=== PATIENT | female | born 1985 | race Caucasian/White ===

== ENCOUNTER → 2016-05-13 | Outpatient (CLI) | payer BC ==
[~2016-05-13] MED LIST: ESTR10IN2 IM; HYDR1INJ12; PRENTAB26 PO; PRGI INJ
== END | disposition home or self-care (01) ==
LOC: C.PAPS 13:49
PROVIDERS: ATTEND Obstetrics & Gynecology
DX: O09.811 Supervision of pregnancy resulting from assisted reproductive technology, first trimester (principal)

== ENCOUNTER → 2016-05-17 | Outpatient (CLI) | payer BC ==
[2016-05-17 09:32] LABS: BASO % 0.3 %; BASO ABS # 0.02 K/uL (0-0.2); COMPLETE YES; EOS % 1.6 %; HEMATOCRIT 38.9 % (37-47); IG% 0.3 %; LYMPH % 22.6 %; LYMPH ABS # 1.79 K/uL (1.2-3.4); MEAN CELL VOLUME 89.2 fL (80-100); MEAN CORPUSCULAR HEMOGLOBIN 31.4 pg (25-34); MEAN CORPUSCULAR HGB CONC 35.2 g/dl (32-36); MEAN PLATELET VOLUME 10.3 fL (7.4-10.4); MONO % 5.5 %; NEUT % 69.7 %; PLATELET COUNT 241 K/uL (130-400); RED BLOOD COUNT 4.36 M/uL (4.2-5.4); WHITE BLOOD COUNT 7.93 K/uL (4.8-10.8)
== END | disposition home or self-care (01) ==
LOC: C.LAB1850 07:59
PROVIDERS: ATTEND Obstetrics & Gynecology
DX: O09.819 Supervision of pregnancy resulting from assisted reproductive technology, unspecified trimester (principal); O24.419 Gestational diabetes mellitus in pregnancy, unspecified control; Z3A.00 Weeks of gestation of pregnancy not specified

== ENCOUNTER 2016-06-08 11:09 | Emergency (ER) | payer BC, OTHER ==
[~2016-06-08] VITALS: Ht 167.6 cm; Wt 58.4 kg
[~2016-06-08 11:09] MED LIST changes: -HYDR1INJ12; -PRENTAB26 PO
[2016-06-08 11:10] VITALS: Ht 167.6 cm; Wt 58.4 kg
[2016-06-08] MEDS ORDERED: PRENTAB26 PO (11:28)
--- NOTE | 2016-06-08 11:46 | EMERGENCY ROOM VISIT NOTE ---
History First contact with patient: 11:29 Chief Complaint: NEEDLE STICK Stated Complaint: NEEDLESTICK History of Present Illness The patient is a 30 year old female who presents to the Emergency Room with complaints of "needle stick". Patient states that just before coming to the emergency department she was in the operating room here in the hospital and was accidentally stuck in the left second finger with a needle. The source patient is known. The patient immediately cleansed the area with Betadine. Minimal pain. She does not wish to have prophylaxis at this time. She notes she is 15 weeks . Review of Systems A complete 6-point Review of Systems was discussed with the patient, with pertinent positives and negatives listed in the History of Present Illness. All remaining Review of Systems questions can be considered negative unless otherwise specified. Past Medical/Surgical History Medical Problems: (1) In vitro fertilization Family History FHx: gallbladder disease FHx: heart disease Hypertension Kidney disease Social History Smoking Status: Never Smoker Marital Status: Housing Status: lives with family Occupation Status: employed Current/Historical Medications Scheduled Multivit/Min/Iron/Fol Ac/Pren ( Vitamin), 1 TAB PO DAILY Allergies Coded Allergies: Scallop (Verified Allergy, Intermediate, SEVERE VOMITING, 08/30/14) Physical Exam Vital Signs Date Time Temp Pulse Resp B/P Pulse Ox O2 Delivery O2 Flow Rate FiO2 06/08/16 12:27 36.8 73 18 114/72 99 06/08/16 11:10 36.8 73 18 114/72 99 Room Air Physical Exam VITAL SIGNS - Vital signs and nursing notes were reviewed. GENERAL - 30-year-old female appearing her stated age who is in no acute distress. Communicates well with provider and answers questions appropriately. SKIN - Without rashes. There is evidence of a small puncture to the left second index finger without bleeding. Good capillary refill. Full range of motion of the digit. Medical Decision & Procedures Medical Decision Patient was seen and evaluated as above. After obtaining a thorough history and physical examination it was evident the patient had received a body fluid exposure via needle stick in the operating room which I believe is significant. She was offered infectious prophylaxis but declined. The necessary paperwork regarding consent for testing was completed. [facility] labs were drawn after verifying consent. I did notify Jyoti Huntley and discussed the patient case with her. She will be contacting the necessary individuals to obtain source patient testing. She will then contact the patient here regarding lab results and follow-up. I do believe this is reasonable. Patient was educated upon worrisome symptoms in which to return, declined further cleansing of the wound and was discharged in good condition. Impression Primary Impression: Needlestick injury accident with exposure to body fluid Departure Information Dispostion Home / Self-Care Condition GOOD Referrals No Doctor, Assigned (PCP) Patient Instructions My [facility] Additional Instructions You were seen in the emergency Department for a needlestick of your finger. Through sure decision-making we have decided not to initiate prophylaxis at this time. You have consented to baseline testing. We have contacted Jyoti Huntley, an employee health farm loan representative who will be contacting you. You may also contact her directly at [phone]. She will be contacting individuals to have the source patient tested. If you have any questions please return or call back to the emergency department. Please watch for signs of infection on your finger to include redness, swelling , drainage, discharge if these develop please return to the emergency Department immediately. Please return to the emergency department with any new/concerning symptoms.
[2016-06-08 12:27] VITALS: BP 114/72; PULSE 73; TEMP 36.8; O2SAT 99
== END 2016-06-08 12:10 | disposition home or self-care (01) ==
LOC: C.EDB 11:10 → C.EDD 12:10
DX: S61.231A Puncture wound without foreign body of left index finger without damage to nail, initial encounter (principal); O9A.212 Injury, poisoning and certain other consequences of external causes complicating pregnancy, second trimester; W46.1XXA Contact with contaminated hypodermic needle, initial encounter; Y92.234 Operating room of hospital as the place of occurrence of the external cause; Y99.0 Civilian activity done for income or pay; Z3A.15 15 weeks gestation of pregnancy

== ENCOUNTER → 2016-08-02 | Outpatient (CLI) | payer BC ==
[~2016-08-02] MED LIST changes: -ESTR10IN2 IM; +HYDR1INJ12; +PRENTAB26 PO; -PRGI INJ
== END | disposition home or self-care (01) ==
LOC: C.CPL 13:13
PROVIDERS: ATTEND Obstetrics & Gynecology
DX: O09.812 Supervision of pregnancy resulting from assisted reproductive technology, second trimester (principal); Z3A.00 Weeks of gestation of pregnancy not specified

== ENCOUNTER → 2016-09-08 | Outpatient (CLI) | payer BC ==
[2016-09-08 13:09] LABS: URINE APPEARANCE CLEAR (CLEAR); URINE BILIRUBIN NEG (NEG); URINE COLOR YELLOW; URINE NITRITE NEG (NEG); URINE PH 7.5 (4.5-7.5); URINE SPECIFIC GRAVITY 1.008 (1.000-1.030); UROBILINOGEN NEG (NEG)
[2016-09-08 13:18] LABS: MANUAL MICROSCOPIC REQUIRED? NO; REVIEW REQ? NO
== END | disposition home or self-care (01) ==
LOC: C.LABSPEC 12:16
PROVIDERS: ATTEND Obstetrics & Gynecology
DX: O09.813 Supervision of pregnancy resulting from assisted reproductive technology, third trimester (principal)

== ENCOUNTER → 2016-09-20 | Outpatient (CLI) | payer BC ==
[2016-09-20 09:42] LABS: HEMATOCRIT 32.6 % (37-47)
== END | disposition home or self-care (01) ==
LOC: C.LAB1850 08:01
PROVIDERS: ATTEND Internal Medicine
DX: O09.813 Supervision of pregnancy resulting from assisted reproductive technology, third trimester (principal)

== ENCOUNTER 2016-10-17 12:26 | Outpatient (CLI) | payer BC ==
[~2016-10-17 12:26] MED LIST changes: -HYDR1INJ12
--- NOTE | 2016-10-17 12:52 | Medical Student: [facility] ---
Med Student History & Physical Date of Service Oct 17, 2016. Chief Complaint R/O Pre-Term Labor History of Present Illness Source: patient Alta is a 31-year-old with an HARI of 12/03/2016 who presents to labor and delivery for cramping. The cramping began last evening and has persisted today. She doesn't think anything she did caused it and that it may be due to the baby "trying to flip." She denies bleeding, contractions, and leakage of fluid. She is still having movements. This has been complicated by gestational diabetes mellitus, and this was conceived via IVF. OB History Alta has a 2-year-old son who was born in August 2014 at [address] [facility]. This was complicated by gestational diabetes mellitus and was also conceived via IVF. Her son has had no developmental delays. 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 PCOS 2. 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 Past Medical History PCOS Family History Father - hypertension Mother - hypercholesterolemia Sister - trisomy 15 Social History Feels safe at home Smoking Status: Never Smoker Smokeless Tobacco Use: No Alcohol Use: none Drug Use: none Marital Status: Occupational Status: employed Allergies Coded Allergies: Scallop (Verified Allergy, Intermediate, SEVERE VOMITING, 08/30/14) Home Medications Multivit/Min/Iron/Fol Ac/Pren ( Vitamin), 1 TAB PO DAILY Review of Systems Constitutional: No fever, No chills Respiratory: No shortness of breath Cardiovascular: No chest pain, No palpitations Abdomen: No nausea, No vomiting Physical Exam General Appearance: WD/WN, no apparent distress Respiratory/Chest: lungs clear Cardiovascular: regular rate, rhythm, no edema, no gallop, + systolic murmur Assessment and Plan Alta is a 31-year-old with an HARI of 12/03/2016 who presents to labor and delivery for cramping. - Continue EFM and tocodynamometry to monitor wellbeing and potential contractions. - Check cervix for dilation and effacement, leakage of fluid, and bleeding. Complete nitrazine and fern test if amniotic fluid present.
[2016-10-17] MEDS ORDERED: LACTATED RINGER'S 1000ML 1,000 ML IV SCH (15:13)
[2016-10-17] MEDS ORDERED: LACTATED RINGER'S 1000ML 500 ML IV ONE (15:13)
[2016-10-17] MEDS ORDERED: MAGNESIUM SULFATE 4GM / WTR 4 GM BAG IV ONE (15:15)
[2016-10-17] MEDS ORDERED: PENICILLIN G POTASSIUM IV 6 MU in DEXTROSE 5% 250ML 250 ML IV ONE (15:15)
[2016-10-17] MEDS ORDERED: BETAMETH SOD PHOS/ACETATE IA 6 MG/ML IM ONE (15:15)
[2016-10-17] MEDS ORDERED: MAGNESIUM SULFATE 40GM / WTR 1000 ML IV SCH (15:30)
[2016-10-17] MEDS ORDERED: IV FLUIDS COMPLETED PRN (15:30)
[2016-10-17] MEDS ORDERED: LIDOCAINE HCL 2% JELLY 30 ML TUBE EXT ONE (15:31)
== END 2016-10-17 17:30 | disposition short-term general hospital (02) ==
LOC: C.OPB 12:26 → C.LD 12:27 → C.OPB 17:30 → EDSTATUS 12-03 12:20
PROVIDERS: ATTEND Obstetrics & Gynecology
DX: O62.9 Abnormality of forces of labor, unspecified (principal); Z3A.33 33 weeks gestation of pregnancy

== ENCOUNTER 2016-11-10 15:15 | Outpatient (CLI) | payer BC ==
[2016-11-10] MEDS ORDERED: HYDR1INJ12 (18:02)
== END 2016-11-10 18:00 | disposition home or self-care (01) ==
LOC: C.LD 15:15 → C.OPB 15:15
PROVIDERS: ATTEND Obstetrics & Gynecology
DX: O26.893 Other specified pregnancy related conditions, third trimester (principal); Z3A.36 36 weeks gestation of pregnancy

== ENCOUNTER 2016-11-19 07:43 | Inpatient (IN) | payer BC ==
[~2016-11-19] VITALS: Ht 167.6 cm; Wt 61.8 kg
[~2016-11-19 07:43] MED LIST changes: +HYDR1INJ12
[2016-11-19] MEDS ORDERED: LACTATED RINGER'S 1000ML 1,000 ML IV SCH (08:12)
[2016-11-19] MEDS ORDERED: LACTATED RINGER'S 1000ML 1,000 ML IV PRN (08:12)
[2016-11-19 08:47] LABS: HEMATOCRIT 35.1 % (37-47); MEAN CELL VOLUME 87.5 fL (80-100); MEAN CORPUSCULAR HEMOGLOBIN 28.9 pg (25-34); MEAN PLATELET VOLUME 9.9 fL (7.4-10.4); PLATELET COUNT 206 K/uL (130-400); RED BLOOD COUNT 4.01 M/uL (4.2-5.4); WHITE BLOOD COUNT 8.15 K/uL (4.8-10.8)
[2016-11-19 08:52] VITALS: Ht 167.6 cm; Wt 61.8 kg
[2016-11-19] MEDS ORDERED: OXYTOCIN 30 UNITS/500ML NSS IV ONE (11:04)
[2016-11-19] MEDS ORDERED: OXYTOCIN 30 UNITS/500ML NSS IV PRN (11:30)
[2016-11-19] MEDS ORDERED: SUPERCREAM 0.870 % 15GM JAR EXT PRN (11:30)
[2016-11-19] MEDS ORDERED: HYDROCORTISONE ACETATE 25 MG SUPP PR PRN (11:30)
[2016-11-19] MEDS ORDERED: LANOLIN OINT EXT PRN ×2 (11:30)
[2016-11-19] MEDS ORDERED: DIPHTHERIA/TETANUS/PERTUSSIS 0.5 ML SYR/VIAL IM. ONE (11:30)
[2016-11-19] MEDS ORDERED: BENZOCAINE 20% AER SPR 82.5 GM CAN EXT PRN (11:30)
[2016-11-19] MEDS ORDERED: ACETAMINOPHEN/CODEINE 300/30MG TAB PO PRN ×2 (11:30)
[2016-11-19] MEDS ORDERED: ACETAMINOPHEN 325 MG TAB PO PRN (11:30)
[2016-11-19] MEDS: IBUPROFEN 600 MG TAB PO PRN ×3 (12:50→20:02)
[2016-11-19 13:50] VITALS: BP 125/70; PULSE 75; TEMP 36.7
[2016-11-19 17:05] VITALS: BP 113/68; PULSE 72; TEMP 37.1
[2016-11-19 19:45] VITALS: BP 113/73; PULSE 60; TEMP 37.1
[2016-11-19] MEDS: DOCUSATE SODIUM 100 MG CAP PO SCH (20:02)
[2016-11-19 23:35] VITALS: BP 118/72; PULSE 58; TEMP 36.4
--- NOTE | 2016-11-20 01:10 | DELIVERY SUMMARY ---
DATE OF OPERATION: 11/19/2016 FINDINGS: Viable female with Apgars of 8 and 9. Baby delivered spontaneously over an intact perineum. Cord blood samples obtained. Placenta delivered spontaneously. Estimated blood loss 300 mL. LABOR NOTE: The patient is a 31-year-old 2, para 0-1-0-1 with an EDC of [place] by IVF transfer dates, who was admitted with spontaneous rupture of membranes and active labor. The patient states that her membranes ruptured at approximately 05:30 with subsequent onset of contractions. This was conceived through IVF technology. She was followed per IVF protocol. She had serial ultrasounds for growth and a echo, which were all reassuring. She had a third trimester testing, which was all reassuring. The patient is with a history of gestational diabetes, diet controlled, which she was followed during this . The patient's last was 34-week premature rupture of membranes. Because of the delivery, 17-hydroxyprogesterone was recommended. The patient was started on this at 17 weeks and continued up to 37 weeks' gestational age. Blood work for the showed a blood type of O positive, antibody negative, rubella immune, and hepatitis B negative. She declined a quad screen. She had a negative third trimester beta strep culture. Upon admission, the patient was grossly ruptured, 3-4 cm dilated, active in labor. Tracing was category 1. The patient requested minimal intervention. Hep-Lock was placed. Over the next several hours, she progressed to full dilatation and began her second stage. She pushed for approximately 10 minutes, delivering a viable female infant. Cord was clamped and cut. Cord blood samples obtained. Placenta delivered spontaneously. Inspection of the perineum showed it to be intact. Estimated blood loss 300 mL. Sponge and needle count was correct. I attest to the content of the Intraoperative Record and any orders documented therein. Any exception s are noted below.
[2016-11-20 04:05] VITALS: BP 121/72; PULSE 57; TEMP 36.8
[2016-11-20] MEDS: DOCUSATE SODIUM 100 MG CAP PO SCH (07:46)
[2016-11-20] MEDS: IBUPROFEN 600 MG TAB PO PRN (07:47)
--- NOTE | 2016-11-20 07:50 | OB/GYN Progress Note ---
HOT MAN Progress Note Date of Service Nov 20, 2016. Subjective conversation w/ patient, physical exam Ambulation: ambulating normally Feeding Type: Breast Feeding Objective Vital Signs Date Time Temp Pulse Resp B/P (MAP) Pulse Ox O2 Delivery O2 Flow Rate FiO2 11/20/16 04:05 36.8 57 18 121/72 (88) Room Air 11/19/16 23:35 Room Air 11/19/16 23:35 36.4 58 18 118/72 (87) Room Air 11/19/16 19:45 37.1 60 20 113/73 (86) Room Air 11/19/16 17:05 Room Air 11/19/16 17:05 37.1 72 22 113/68 (83) Room Air 11/19/16 13:50 Room Air 11/19/16 13:50 36.7 75 20 125/70 (88) Room Air Physical Exam General Appearance: WELL-APPEARING, NO APPARENT DISTRESS Fundus: Firm, Non-Tender Extremities: no calf tenderness Laboratory Results Last 24 Hours Test 11/19/16 08:32 11/20/16 07:39 White Blood Count 8.15 K/uL Red Blood Count 4.01 M/uL Hemoglobin 11.6 g/dL Hematocrit 35.1 % Mean Corpuscular Volume 87.5 fL Mean Corpuscular Hemoglobin 28.9 pg Mean Corpuscular Hemoglobin Concent 33.0 g/dl RDW Standard Deviation 41.9 fL RDW Coefficient of Variation 13.0 % Platelet Count 206 K/uL Mean Platelet Volume 9.9 fL Assessment and Plan Post- Day Number: 1 Continue Routine Care: - routine care - doing well - desires d/c - instructions given - f/u in 6 weeks
--- NOTE | 2016-11-20 07:51 | Discharge Instructions ---
Discharge Instructions Date of Service Nov 20, 2016. Admission Reason for Admission: Confirmed Rupture Discharge Discharge Diagnosis / Problem: same Discharge Goals Goal(s): Routine recovery after delivery Medications Continue Dispensed Medications: supercream, dermaplast Activity Recommendations Activity Limitations: as noted below . Instructions / Follow-Up Instructions / Follow-Up ACTIVITY RECOMMENDATIONS: * Gradual return to full activity over the next 2-3 weeks. * No lifting - nothing heavier than baby over the next 2-3 weeks. * Do not engage in vigorous exercise, sexual activity or sports until cleared by your physician. * Do not drive or operate any motorized equipment until cleared by your physician. * You may shower/bathe daily. MEDICATIONS: For discomfort or pain, you may use Acetaminophen (Tylenol), Ibuprofen (Advil), or Naproxen (Aleve) following the package directions. For constipation you may use Colace following the package directions. BREAST CARE: If you are not breast feeding: * Wear a supportive bra 24 hours a day for one to two weeks. * Avoid stimulating your breasts and nipples as much as possible during the first few weeks after delivery. * When taking a shower, have the warm water hit your back, not breasts. * When your breasts feel full, apply ice packs. Usually three to four times a day helps ease the discomfort. * Take a mild pain medication (Tylenol / Motrin) when you are uncomfortable. If breast feeding: * Use breast milk to lubricate nipples. Lansinoh cream may be used for sore nipples. You do not need to remove cream prior to breast feeding. If using a different brand of cream, check the label for directions regarding removal of cream prior to nursing. * Wear a supportive bra. * If having problems with breasts or breast feeding, call a taxation consultant or your health care provider. EPISIOTOMY CARE: After delivery, if you have an episiotomy (stitches), the following steps will ease discomfort and aid healing. * For the first 24 hours after delivery, place ice packs next to your episiotomy to help reduce swelling. * After the first 24 hour-period, sitz baths, either portable or in the tub, are suggested. A shower with a shower arm sprayed over the episiotomy may be comforting. * Suze care should be done after each voiding and bowel movement. Squirt warm water from a plastic bottle over the perineum (region of the body between the anus and urinary opening) and pat dry. * Use Dermoplast to ease discomfort. Shake container. [place] directly over the episiotomy. Place a Tucks on a clean sanitary pad next to your episiotomy. SPECIAL CARE INSTRUCTIONS: When you are discharged from the hospital, it is important for you to follow the instructions listed below: * During the first week at home, you should be able to care for yourself and your baby. In addition, the usual light household activities are encouraged. * Limit your activities to the way you feel. Do not try to clean the house or move furniture. Be sensible. * If you actively engage in sports and have done so up until the time of your delivery, you may resume these activities as soon as you feel able. This may take up to one month or even longer. Use good judgment. * Continue to take your vitamins for at least six weeks after the of your baby. * Your diet need not be limited unless you were on a special diet before your delivery. Breast-feeding mothers need around 2500 calories per day and at least 64-80 ounces of fluid per day (8 to 10 glasses). * You should eat foods from the four major food groups. Crash diets or fad diets are to be avoided. Eating lean meats, fresh fruits and vegetables, low-fat dairy products, high fiber foods and a regular exercise program, will help you get back to your pre- weight without putting your health at risk. * Constipation is sometimes a problem after delivery. Take a mild laxative as needed. If breast feeding, Milk of Magnesia is acceptable to use. You may use a suppository or Fleets enema if no episiotomy. * A daily shower or tub bath is suggested. Be sure to thoroughly and gently dry the perineum. * A bloody vaginal discharge will usually continue until around four weeks post . A small amount of bleeding may continue for as long as six weeks. Vaginal discharge changes from the bright red bleeding after delivery to pink then brownish and finally yellowish-pink before becoming white and disappearing. * Bleeding may increase with activity. Your first period may come in 4-8 weeks. If you are breast feeding, your period may be delayed even longer. * [place] (sex) can begin whenever both you and your partner feel comfortable and do not have any form of genital infection. It is recommended that you wait at least six weeks for internal and external healing to occur. If you have questions, please talk to your health care practitioner. A condom should be used to prevent infection and . * Foreplay, gentle intercourse and lubrication is very important the first several times to prevent pain. A water-based lubricant such as K-Y jelly or Astroglide may be used. * If you have RH negative blood and your baby is RH positive, you will receive RHOGAM by injection prior to discharge. The nurse will give you a card to keep with you that has the date and place that you received RHOGAM after delivery. * During your care, you had a Rubella screen done to check for the presence of rubella antibodies in your blood. If your test was negative, you will receive a Rubella vaccine prior to discharge. This vaccine may cause a fever, soreness at the injection site and flu-like symptoms. If these symptoms persist, notify your health care practitioner. is not advised for one month after a Rubella vaccine. * Verbalizes understanding of car seat law as reviewed with patient nursing. * Car Seat hand-out given and reviewed with patient by nursing. * Shaken baby information reviewed with patient by nursing. Call you doctor if: * Heavy bleeding (saturating several pads an hour) or passing clots the size of your fist. * A fever >101 degrees F (38.3 degrees C) on two occasions four hours apart and /or chills. * Unusual pain in the pelvic or vaginal areas. * "Baby Blues" lasting longer than two weeks. If you have any questions or concerns, call your health care practitioner at . FOLLOW UP VISIT: * Please call the office at to schedule a 6 week examination. It is important you keep this appointment. It is important for you to make arrangements for either yearly or twice yearly check-ups thereafter. Current Hospital Diet Patient's current hospital diet: Regular OB Diet Discharge Diet Recommended Diet: Regular OB Diet Pending Studies Studies pending at discharge: no Medical Emergencies . Who to Call and When: Medical Emergencies: If at any time you feel your situation is an emergency, please call 911 immediately. . Non-Emergent Contact Non-Emergency issues call your: Recruitment Specialist Call Non-Emergent contact if: temperature is above 100.5 . . "Provider Documentation" section prepared by Abbe Cherry. . VTE Core Measure Inpt VTE Proph given/why not?: Treatment not indicated
[2016-11-20] MEDS ORDERED: FERROUS SULFATE 325 MG TAB PO SCH (08:00)
[2016-11-20] MEDS ORDERED: PRENATAL VITAMIN TAB PO SCH (08:00)
[2016-11-20 08:13] LABS: HEMATOCRIT 34.5 % (37-47)
[2016-11-20 08:20] VITALS: BP 114/66; PULSE 60; TEMP 36.8
[2016-11-20 12:20] VITALS: BP_DIAS 66; PULSE 60; TEMP 36.8
[2016-11-20] MEDS ORDERED: BISACODYL 5 MG TABEC PO SCH (20:00)
== END 2016-11-20 12:20 | disposition home or self-care (01) | DRG 775 ==
LOC: C.OPB 07:43 → C.LD 07:44 → C.OPB 08:16 → C.OBG 13:55
PROVIDERS: ADMIT Obstetrics & Gynecology; ATTEND Obstetrics & Gynecology
PROC: 10E0XZZ Delivery of Products of Conception, External Approach (ICD-10-PCS; principal; 2016-11-19)
DX: O42.02 Full-term premature rupture of membranes, onset of labor within 24 hours of rupture (principal); Z37.0 Single live birth; O26.893 Other specified pregnancy related conditions, third trimester; Z23 Encounter for immunization; O24.420 Gestational diabetes mellitus in childbirth, diet controlled; Z3A.38 38 weeks gestation of pregnancy

== ENCOUNTER 2017-06-19 15:13 | Emergency (ER) | payer BC, OTHER ==
[~2017-06-19] VITALS: Ht 167.6 cm; Wt 53.0 kg
[~2017-06-19 15:13] MED LIST changes: -HYDR1INJ12
[2017-06-19 15:22] VITALS: BP 118/77; PULSE 58; TEMP 36.8; O2SAT 99; Ht 167.6 cm; Wt 53.0 kg
--- NOTE | 2017-06-19 15:35 | EMERGENCY ROOM VISIT NOTE ---
ED Visit Note First contact with patient: 15:14 CHIEF COMPLAINT: Superficial finger laceration - exposure to blood in the OR HISTORY OF PRESENT ILLNESS: This 31-year-old female patient presents to the emergency department approximately 1-1/2 hours after cutting the lateral aspect of the left index finger with a dirty scalpel blade. The patient was assisting in the operating room, when she felt the blade sliced through her glove and superficially cut the finger. The bleeding has stopped. Denies weakness or numbness of the finger. The patient has full range of motion of the fingers. The patient rates the pain as minimal and 1/10. The patient denies any other injuries. The patient's tetanus shot is up to date. REVIEW OF SYSTEMS: A 6 system review of systems was completed with positives and pertinent negatives listed in the HPI. ALLERGIES: none MEDICATIONS: None PMH: None. The patient is currently SOCIAL HISTORY: The patient lives locally with family. She denies drug, alcohol , tobacco use. PHYSICAL EXAM: Vital Signs: Reviewed Nurse's notes, vital signs stable. GENERAL : This is a 31 year old female, in no acute distress, well developed, well nourished. SKIN: There is a 1 cm long laceration on the lateral aspect of the left index finger. The edges do not gape apart with traction. There is no foreign material in the wound and it looks clean. There is no active bleeding. No deep structures such as tendons, bones, or significant blood vessels are seen in the base of the wound. Extension and flexion of the finger is full and strong. Full range of motion of the wrist and other fingers. Capillary refill less than 2 seconds. Normal sensation to light and sharp touch. EMERGENCY DEPARTMENT COURSE: I examined the patient. The patient has already cleansed the wound with betadine and water in the OR. HIV consent and other lab draw discussed. All paperwork signed. Labs were drawn. The patient was discharged home/back to work in good condition. I attest that I have personally reviewed the patient's current medication list. Patient was found to have normal blood pressure on screening and does not require follow-up. Differential diagnosis includes HIV or other communicable disease exposure, cellulitis, laceration, fracture, abscess, infection, and others DIAGNOSIS: Finger laceration, occupational exposure to blood Current/Historical Medications Scheduled Multiple Vitamins W/ Minerals (Womens Multi Vitamin & Mi), 1 TAB PO DAILY Allergies Coded Allergies: Scallop (Verified Allergy, Intermediate, SEVERE VOMITING, 11/20/16) Vital Signs Date Time Temp Pulse Resp B/P (MAP) Pulse Ox O2 Delivery O2 Flow Rate FiO2 06/19/17 15:22 36.8 58 16 118/77 99 Room Air Departure Information Impression Primary Impression: Laceration of left index finger Additional Impression: Employee exposure to blood Dispostion Home / Self-Care Condition GOOD Referrals Employee Health No Doctor, Assigned (PCP) Patient Instructions My [facility] [employer], [place] Other [place] Precautions Additional Instructions You were seen in the emergency department today for a significant exposure to blood. Baseline lab testing was initiated. Please follow-up with occupational medicine for follow-up and test results. Return to the emergency department for significant bleeding, redness, purulent drainage, fevers, systemic symptoms, or other concerning symptoms. Problem Qualifiers Primary Impression: Laceration of left index finger Encounter type: initial encounter Damage to nail status: without damage Foreign body presence: without foreign body Qualified Codes: S61.211A - Laceration without foreign body of left index finger without damage to nail, initial encounter
[2017-06-19] MEDS ORDERED: MULT-603 PO (15:39)
== END 2017-06-19 16:13 | disposition home or self-care (01) ==
LOC: EDBD 15:13 → C.EDD 15:15
DX: S61.211A Laceration without foreign body of left index finger without damage to nail, initial encounter (principal); W45.8XXA Other foreign body or object entering through skin, initial encounter; Z77.21 Contact with and (suspected) exposure to potentially hazardous body fluids; Y99.0 Civilian activity done for income or pay

== ENCOUNTER 2018-12-15 03:00 | Inpatient (IN) ==
[2018-12-15] MEDS ORDERED: LACTATED RINGER'S 1,000 ML IV PRN (06:30)
[2018-12-15] MEDS ORDERED: OXYTOCIN 30 UNITS/500 ML BAG IV PRN ×2 (06:30→09:33)
--- NOTE | 2018-12-15 06:38 | History & Physical Report ---
Date of Service December 15, 2018 Assessment & Plan (1) Normal labor: IUP at term in labor anticipate vaginal planning unmedicated delivery see orders for further directions Present on Admission?: Yes History of Present Illness Primary Care Provider: Girish Ivey, DO Patient it a 33 yo white female who presents at 38 weeks in active labor. Her cervix changed from 3 to 5 cm dilated. contractions are currently 4-5 minutes apart. GBS (-) Although her 2 prior pregnancies were IVF, this was a spontaneous conception. was complicated by diet controlled GDM Allergies Allergy/AdvReac Type Severity Reaction Status Date / Time scallops Allergy Intermediate SEVERE Verified 12/13/18 13:37 VOMITING No Known Drug Allergies Allergy Verified 12/13/18 13:37 Home Medications Home Medications Medication Instructions Recorded Confirmed Type blood sugar diagnostic strips #10 ea 11/28/18 12/15/18 History blood-glucose meter #1 ea 11/28/18 12/15/18 History urine glucose-ketones test strips #50 ea 11/28/18 12/15/18 History blood ketone and glucose monitor #1 ea 12/01/18 12/15/18 History lancets 30 gauge #25 ea 12/01/18 12/15/18 History 1 tab PO DAILY 12/01/18 12/15/18 History vitamin,calcium,fgoimraw-wqxh-nnqkr acid tablet Patient History Medical History Cervical somatic dysfunction Cranial somatic dysfunction Segmental and somatic dysfunction of abdomen and other regions Segmental and somatic dysfunction of rib cage Varicella Surgical History In vitro fertilization Family History Mother Hypertension Dyslipidemia Sister Trisomy 15 Social History Preferred Language: Greenlandic Beliefs That Will Affect Care: None marital status: Current Living Situation: Spouse and Family Other Information That Helps Us Care for You: No Feels Safe at Home: Yes Safety Concerns: Feels Safe At This Time Smoking Status: Never smoker Second Hand Exposure: No ; Hx Alcohol Use: No Hx Substance Use: No Review of Systems All systems reviewed & are unremarkable except as noted in HPI & below Physical Exam Constitutional: WD/WN, vitals as above Respiratory: normal respiratory effort, lungs clear to auscultation Cardiovascular: RRR, no murmur, no edema Extremities: no calf tenderness Gastrointestinal (Abdomen): normal bowel sounds, soft, nontender, no hepatosplenomegaly Psychiatric: A+Ox3, euthymic affect Genitourinary: normal external appearance OB Exam Abdomen: + vertex and + regular contractions (every 4-5 minutes) Manual OB Exam: + cervical dilation 5 cm, + cervical effacement 90%, + station 0 and + amniotic fluid (intact) OB Exam Monitor Tracing: + external FHT monitor used, + external uterine monitor used, + category I and + normal FHT variability Results & Data Vital Signs (Past 12 Hours) Vital Signs Temp Pulse Resp BP 12/15/18 03:13 97.7 F 62 18 107/68 Code Status & VTE Plan VTE Prophylaxis Plan VTE Prophylaxis will be ordered: No
[2018-12-15 07:02] LABS: Hematocrit (blood only) 32.9 % (37-47); Hemoglobin 11.5 g/dL (12.0-16.0); Mean Corpuscular Volume 88.4 fL (80-100); Mean Platelet Volume 9.5 fL (7.4-10.4); Platelet Count 197 K/uL (130-400); RDW Coefficient of Variation 12.8 % (11.5-14.5); RDW Standard Deviation 41.4 fL (36.4-46.3); Red Blood Count 3.72 M/uL (4.2-5.4); White Blood Count 7.99 K/uL (4.8-10.8)
--- NOTE | 2018-12-15 07:04 | Labor Progress Brief Note ---
Date of Service December 15, 2018 Assessment & Plan (1) Supervision of normal intrauterine in multigravida in third trimester: - doing well - declines pain medication - anticipate Physical Exam Genitourinary: OB Exam Monitor Tracing: + category I and + normal FHT variability Cervix: 5-6/90/0, AROM for scant amount of clear fluid Results & Data Vital Signs (Past 12 Hours) Vital Signs Temp Pulse Resp BP 12/15/18 03:13 97.7 F 62 18 107/68
[2018-12-15] MEDS ORDERED: BISACODYL 10 MG SUPP PR PRN (09:33)
[2018-12-15] MEDS ORDERED: HYDROCORTISONE ACETATE 25 MG SUPP PR PRN (09:33)
[2018-12-15] MEDS ORDERED: SUPERCREAM 0.870% 15 GM JAR EXT PRN (09:33)
[2018-12-15] MEDS ORDERED: DIPHTHERIA/TETANUS/PERTUSSIS 0.5 ML SYR/VIAL IM ONE (09:33)
[2018-12-15] MEDS ORDERED: BENZOCAINE 20% AER SPR 82.5 GM CAN EXT PRN (09:33)
[2018-12-15] MEDS ORDERED: ACETAMINOPHEN 325 MG TAB PO PRN (09:33)
[2018-12-15] MEDS ORDERED: OXYCODONE/ACETAMINOPHEN 5mg/325mg TAB PO PRN (09:33)
[2018-12-15] MEDS ORDERED: IBUPROFEN 600 MG TAB PO ONE (09:49)
--- NOTE | 2018-12-15 10:36 | Delivery Summary ---
DATE OF OPERATION: 12/15/2018 The patient is a 33-year-old 3, para 1-1-0-2 white female who presents at 38 weeks in active labor. She was 3 cm upon arrival, progressed to 5 cm dilation, at which point membranes were ruptured for clear fluid. She progressed to full dilation, unmedicated, and pushed effectively over intact perineum for delivery of a viable female . Mouth and nasopharynx were suctioned after the rest of the was delivered and placed on mother's abdomen. After waiting 30 seconds, the cord was clamped and cut. Cord blood was obtained. Placenta was expressed intact with a 3-vessel cord. Mother and were doing well after delivery. The was vigorous and crying upon delivery. Estimated blood loss was 250 mL. I attest to the content of the Intraoperative Record and any orders documented therein. Any exception s are noted below.
[2018-12-15] MEDS: IBUPROFEN 600 MG TAB PO PRN ×3 (13:54→23:13)
[2018-12-15] MEDS: DOCUSATE SODIUM 100 MG CAP PO SCH (20:24)
[2018-12-16] MEDS: IBUPROFEN 600 MG TAB PO PRN ×2 (04:45→08:41)
[2018-12-16 06:54] LABS: Hemoglobin 10.2 g/dL (12.0-16.0); Mean Corpuscular Volume 89.8 fL (80-100); Platelet Count 162 K/uL (130-400); RDW Coefficient of Variation 13.1 % (11.5-14.5); RDW Standard Deviation 42.4 fL (36.4-46.3); Red Blood Count 3.34 M/uL (4.2-5.4); White Blood Count 8.26 K/uL (4.8-10.8)
[2018-12-16] MEDS ORDERED: PRENATAL VITAMIN 1 TAB PO SCH (08:00)
--- NOTE | 2018-12-16 08:17 | Obstetrical Progress Note ---
Date of Service December 16, 2018 Assessment & Plan (1) Encounter for care and examination after delivery: satisfactory exam & progress D/C to home Follow up in 6 weeks for exam Present on Admission?: No Day #:: 1 Subjective Ambulation: ambulating normally Voiding: no voiding problems Passing Gas:: Yes Diet Tolerance:: regular diet Lochia:: Small Feeding Type:: breast feeding Review of Systems All systems reviewed & are unremarkable except as noted in HPI & below Physical Exam Constitutional WD/WN, vitals as above Cardiovascular Extremities: no calf tenderness Gastrointestinal (Abdomen) normal bowel sounds, soft, nontender, no hepatosplenomegaly Psychiatric A+Ox3, euthymic affect Genitourinary OB Exam Abdomen: + fundal height Fundus: + firm and + relation to umbilicus (1 below U) Results & Data Vital Signs (Past 12 Hours) Vital Signs Temp Pulse Resp BP 12/16/18 04:35 97.7 F 57 L 18 111/71 12/15/18 23:15 97.9 F 72 18 104/64
[2018-12-16] MEDS: DOCUSATE SODIUM 100 MG CAP PO SCH (08:41)
[2018-12-16] MEDS ORDERED: BISACODYL 5 MG TABEC PO SCH (20:00)
== END 2018-12-16 11:25 | disposition home or self-care (01) | DRG 807 ==
LOC: OPB 03:00 → 4S1 03:03 → 4S2 11:30